=== PATIENT | female | born 1970 | race African-American/Black ===

== ENCOUNTER 2019-04-30 19:21 | Emergency (ER) | payer MEDICARE, MEDICAID ==
[~2019-04-30] VITALS: Ht 167.6 cm; Wt 149.7 kg
--- OUTSIDE RECORDS SUMMARY | 2019-04-30 19:28 | XMS REPORT ---
Author Author [facility]EEPTHI SORIA [facility] Address [address] [place] [address] Care Team Providers Care Mail Handlers Supervisor Name Role Phone DEEPTHI SORIA Unavailable PROBLEMS Unknown Problems ALLERGIES Substance Reaction Event Type Date Status DILATIN-CAUSES RASH Unknown Non Drug Allergy Aug, Active ENCOUNTERS Encounter Location Date Diagnosis [facility] [address] [id number] [address] Feb, [facility] [address] [id number], [place] [id number] Feb, [facility] [address] [id number] [place] [phone] Nov, Encounter for dental exam and cleaning w/o abnormal findings Z01.20 [facility] [address] [id number] [place] [phone] Aug, Encounter for dental exam and cleaning w/o abnormal findings Z01.20 [facility] [place] [address] [id number] [place] [phone] Aug, Dental examination Z01.20 [facility] [address] [id number] [place] [phone] May, Encounter for dental examination and cleaning with abnormal findings Z01.21 [facility] [address] [id number] [place] [phone] Feb, Encounter for dental examination and cleaning without abnormal findings Z01.20 [facility] [address] [id number] [place] [phone] Sep, Dental examination Z01.20 [facility] [address] [id number], [place] [phone] Sep, Dental examination Z01.20 [facility] [address] [id number] [place] [phone] May, Encounter for dental examination and cleaning without abnormal findings Z01.20 [facility] [address] [id number], [place] [id number] Apr, Encounter for dental examination Z01.20 [facility] [address] [id number], [place] [id number] January, Dental examination Z01.20 [facility] [address] [id number] [place] [phone] January, Encounter for dental examination and cleaning without abnormal findings Z01.20 [facility] [address] [id number] [place] [id number] Apr, Dental examination V72.2 [facility] [address] [id number] [place] [id number] Mar, Dental examination V72.2 [facility] [address] [id number] [place] [phone] Feb, Dental examination V72.2 IMMUNIZATIONS No Known Immunizations SOCIAL HISTORY Never Assessed REASON FOR VISIT PLAN OF CARE Activity Details Follow Up ZEV Reason:Restorative and extraction VITAL SIGNS MEDICATIONS Medication Instructions Dosage Frequency Start Date End Date Duration Status Atorvastatin-Coenzyme Q10 Active Potassium Bicarb & Chloride Active Premarin Active Metformin HCl Active Lisinopril Active Carbamazepine Active RESULTS No Results PROCEDURES Procedure Date Ordered Result Body Site PERIODIC ORAL EXAMINATION Sep 13, 2017 BITEWINGS - THREE FILMS Sep 13, 2017 INSTRUCTIONS MEDICATIONS ADMINISTERED No Known Medications MEDICAL (GENERAL) HISTORY Type Description Date Medical History HBP Surgical History HYSTERECTOMY 20 YEARS AGO
--- OUTSIDE RECORDS SUMMARY | 2019-04-30 19:28 | XMS REPORT ---
Author Author DEEPTHI SORIA Organization [facility] [address] Address [address] [place] [address] Care Team Providers Care Passenger Car Upholsterer Apprentice Name Role Phone DEEPTHI SORIA Unavailable PROBLEMS Unknown Problems ALLERGIES Substance Reaction Event Type Date Status DILATIN-CAUSES RASH Unknown Non Drug Allergy Feb, Active ENCOUNTERS Encounter Location Date Diagnosis [facility] [address] [place] [address] Feb, [facility] [address] [place] [address] Feb, Dental examination Z01.20 [facility] [address] [id number] [place] [phone] Nov, Encounter for dental exam and cleaning w/o abnormal findings Z01.20 [facility] [address] [id number] [place] [phone] Aug, Encounter for dental exam and cleaning w/o abnormal findings Z01.20 [facility] [address] [place] [address] Aug, Dental examination Z01.20 [facility] [address] [id number], [place] [phone] May, Encounter for dental examination and cleaning with abnormal findings Z01.21 [facility] [address] [id number], [place] [phone] Feb, Encounter for dental examination and cleaning without abnormal findings Z01.20 [facility] [address] [id number], [place] [phone] Sep, Dental examination Z01.20 [facility] [address] [id number], [place] [phone] Sep, Dental examination Z01.20 [facility] [address] [id number], [place] [phone] May, Encounter for dental examination and cleaning without abnormal findings Z01.20 [facility] [address] [address] [id number] [place] [phone] Apr, Encounter for dental examination Z01.20 [facility] [address] [id number], [place] [phone] January, Dental examination Z01.20 [facility] [address] [id number], [place] [phone] January, Encounter for dental examination and cleaning without abnormal findings Z01.20 [facility] [address] [id number], [place] [phone] Apr, Dental examination V72.2 [facility] [address] [id number], [place] [phone] Mar, Dental examination V72.2 [facility] [address] [id number], [place] [phone] Feb, Dental examination V72.2 IMMUNIZATIONS No Known Immunizations SOCIAL HISTORY Never Assessed REASON FOR VISIT Adult outreach ORIANA Denny PLAN OF CARE Activity Details Follow Up 3 Months Reason:on site recall VITAL SIGNS MEDICATIONS Medication Instructions Dosage Frequency Start Date End Date Duration Status Premarin Active Atorvastatin-Coenzyme Q10 Active Carbamazepine Active Lisinopril Active Metformin HCl Active Potassium Bicarb & Chloride Active RESULTS No Results PROCEDURES Procedure Date Ordered Result Body Site PERIODIC ORAL EXAMINATION March 21, 2018 PROPHYLAXIS - ADULT March 21, 2018 BITEWINGS - THREE FILMS March 21, 2018 INSTRUCTIONS MEDICATIONS ADMINISTERED No Known Medications MEDICAL (GENERAL) HISTORY Type Description Date Medical History HBP Surgical History HYSTERECTOMY 20 YEARS AGO
--- OUTSIDE RECORDS SUMMARY | 2019-04-30 19:28 | XMS REPORT ---
Author Author TASHA AARON Organization [facility] Address [address] [place] [address] Phone Unavailable Care Team Providers Care Choir Singer Name Role Phone TASHA AARON Unavailable Unavailable PROBLEMS Unknown Problems ALLERGIES Substance Reaction Event Type Date Status DILATIN-CAUSES RASH Unknown Non Drug Allergy Nov, Active ENCOUNTERS Encounter Location Date Diagnosis [facility] [place] [address] [place] [address] Feb, [facility] [place] [address] [place] [address] Feb, Dental examination Z01.20 [facility] [address] [id number] [place] [phone] Nov, Encounter for dental exam and cleaning w/o abnormal findings Z01.20 [facility] [address] [id number] [place] [phone] Aug, Encounter for dental exam and cleaning w/o abnormal findings Z01.20 [facility] [place] [address] [place] [address] Aug, Dental examination Z01.20 [facility] [address] [id number] [place] [phone] May, Encounter for dental examination and cleaning with abnormal findings Z01.21 [facility] [address] [id number] [place]RAWF[place] [phone] Feb, Encounter for dental examination and cleaning without abnormal findings Z01.20 [facility] [address] [id number] [place] [phone] Sep, Dental examination Z01.20 [facility] [address] [id number], [place] [phone] Sep, Dental examination Z01.20 [facility] [address] [id number] [place]RA[place] [phone] May, Encounter for dental examination and cleaning without abnormal findings Z01.20 [facility] [address] [id number] [place] [phone] Apr, Encounter for dental examination Z01.20 [facility] [address] [facility] [address] [id number] [place] [phone] January, Dental examination Z01.20 [facility] [address] [id number] [place]RAWF[place] [phone] January, Encounter for dental examination and cleaning without abnormal findings Z01.20 [facility] [address] [id number] [place]RAWF[place] [phone] Apr, Dental examination V72.2 [facility] [address] [id number] [place] [phone] Mar, Dental examination V72.2 [facility] [address] [id number] [place] [phone] Feb, Dental examination V72.2 IMMUNIZATIONS No Known Immunizations SOCIAL HISTORY Never Assessed REASON FOR VISIT [facility]ACH [facility] PLAN OF CARE Activity Details Follow Up 3 Months Reason:ON SITE RECALL VITAL SIGNS MEDICATIONS Medication Instructions Dosage Frequency Start Date End Date Duration Status Premarin Active Atorvastatin-Coenzyme Q10 Active Carbamazepine Active Metformin HCl Active Lisinopril Active Potassium Bicarb & Chloride Active RESULTS No Results PROCEDURES Procedure Date Ordered Result Body Site PROPHYLAXIS - ADULT December 13, 2017 TOPICAL FLUORIDE VARNISH December 13, 2017 INSTRUCTIONS MEDICATIONS ADMINISTERED No Known Medications MEDICAL (GENERAL) HISTORY Type Description Date Medical History HBP Surgical History HYSTERECTOMY 20 YEARS AGO
--- OUTSIDE RECORDS SUMMARY | 2019-04-30 19:28 | XMS REPORT ---
Author Author [facility]OLMAN [facility] [place] Address [address] [place] [address] Care Team Providers Care Mining Engineer Name Role Phone TORY HOLMAN Unavailable PROBLEMS Type Condition ICD9-CM Code [id number] Code Onset Dates Condition Status SNOMED Code Assessment Encounter for dental examination Z01.20 Apr, Active [id number] ALLERGIES Unknown Allergies SOCIAL HISTORY No smoking Hx information available PLAN OF CARE VITAL SIGNS MEDICATIONS Unknown Medications RESULTS No Results PROCEDURES Procedure Date Ordered Related Diagnosis Body Site Dental no charge May 17, 2016 IMMUNIZATIONS No Known Immunizations
--- OUTSIDE RECORDS SUMMARY | 2019-04-30 19:28 | XMS REPORT ---
Author Author RANDY CRAVEN Organization [employer] Address Unknown Phone Unavailable Care Team Providers Care Auto Dealer Name Role Phone RANDY CRAVEN CP Unavailable Allergies No Known Allergies Problems Problem Type Condition ICD-9 Code Onset Dates Condition Status Assessment Dental examination V72.2 Active Medications No Known Medications Procedures Procedure Coding System Code Date Dental no charge CPT-4 D0099 May 20, 2015 Results No Known Results Summary Purpose [employer] Submission
--- OUTSIDE RECORDS SUMMARY | 2019-04-30 19:28 | XMS REPORT ---
Author Author DEEPTHI SORIA Organization [facility] [address] Address [address] [place] [address] Care Team Providers Care Blind Hanger Name Role Phone DEEPTHI SORIA Unavailable PROBLEMS Unknown Problems ALLERGIES No Information ENCOUNTERS Encounter Location Date Diagnosis [facility] [address] [place] [address] Feb, [facility] [address] [place] [address] Feb, Dental examination Z01.20 [facility] [address] [id number] [place] [id number] Nov, Encounter for dental exam and cleaning w/o abnormal findings Z01.20 [facility] [address] [id number] [place] [phone] Aug, Encounter for dental exam and cleaning w/o abnormal findings Z01.20 [facility] [address] [place] [address] Aug, Dental examination Z01.20 [facility] [address] [id number] [place] [phone] May, Encounter for dental examination and cleaning with abnormal findings Z01.21 [facility] [address] [id number] [place]AMES[place] [phone] Feb, Encounter for dental examination and cleaning without abnormal findings Z01.20 [facility] [address] [id number] [place]AMES[place] [phone] Sep, Dental examination Z01.20 [facility] [address] [id number], [place] [phone] Sep, Dental examination Z01.20 [facility] [address] [id number] [place]AMES[place] [phone] May, Encounter for dental examination and cleaning without abnormal findings Z01.20 [facility] [address] [id number] [place] [phone] Apr, Encounter for dental examination Z01.20 [facility] [address] [id number] [place] [phone] January, Dental examination Z01.20 [facility] [address] [id number] [place] [phone] January, Encounter for dental examination and cleaning without abnormal findings Z01.20 [facility] [address] [id number] [place]AMES[place] [phone] Apr, Dental examination V72.2 [facility] [address] [id number] [place] [phone] Mar, Dental examination V72.2 [facility] [address] [id number] [place] [phone] Feb, Dental examination V72.2 IMMUNIZATIONS No Known Immunizations SOCIAL HISTORY Never Assessed REASON FOR VISIT referral PLAN OF CARE VITAL SIGNS MEDICATIONS Unknown Medications RESULTS No Results PROCEDURES No Known procedures INSTRUCTIONS MEDICATIONS ADMINISTERED No Known Medications MEDICAL (GENERAL) HISTORY Type Description Date Medical History HBP Surgical History HYSTERECTOMY 20 YEARS AGO
--- OUTSIDE RECORDS SUMMARY | 2019-04-30 19:28 | XMS REPORT ---
Author Author TASHA AARON [facility] Address [address] [place] [address] Phone Unavailable Care Team Providers Care Slat Basket Top Maker Name Role Phone TASHA AARON Unavailable Unavailable PROBLEMS Unknown Problems ALLERGIES Substance Reaction Event Type Date Status N.K.D.A. Unknown Non Drug Allergy Sep, Unknown SOCIAL HISTORY No smoking Hx information available PLAN OF CARE Activity Details Follow Up 3 Months Reason:ON SITE RESTORATIVE VITAL SIGNS MEDICATIONS Unknown Medications RESULTS No Results PROCEDURES Procedure Date Ordered Related Diagnosis Body Site PROPHYLAXIS - ADULT Sep 30, 2016 TOPICAL FLUORIDE VARNISH Sep 30, 2016 IMMUNIZATIONS No Known Immunizations
--- OUTSIDE RECORDS SUMMARY | 2019-04-30 19:29 | XMS REPORT | Continuity of Care Document ---
Author Organization Unknown Address Unknown Phone Unavailable Allergies There is no data. Medications There is no data. Problems There is no data. Procedures There is no data. Results Test Result Range CBC - 02/04/19 08:45 WHITE BLOOD CELL COUNT 8.0 Thousand/uL 3.8-10.8 RED BLOOD CELL COUNT 4.57 Million/uL 3.80-5.10 HEMOGLOBIN 12.7 g/dL 11.7-15.5 HEMATOCRIT 38.8 % 35.0-45.0 MCV 84.9 fL 80.0-100.0 MCH 27.8 pg 27.0-33.0 MCHC 32.7 g/dL 32.0-36.0 RDW 12.7 % 11.0-15.0 PLATELET COUNT 263 Thousand/uL 140-400 MPV 10.4 fL 7.5-12.5 ABSOLUTE NEUTROPHILS 6064 cells/uL 7553-9357 ABSOLUTE LYMPHOCYTES 1464 cells/uL 850-3900 ABSOLUTE MONOCYTES 360 cells/uL 200-950 ABSOLUTE EOSINOPHILS 80 cells/uL 15-500 ABSOLUTE BASOPHILS 32 cells/uL 0-200 NEUTROPHILS 75.8 % NRG LYMPHOCYTES 18.3 % NRG MONOCYTES 4.5 % NRG EOSINOPHILS 1.0 % NRG BASOPHILS 0.4 % NRG A1C - 02/04/19 08:45 HEMOGLOBIN A1c 9.3 % of total Hgb <5.7 Encounters ACCT No. Visit Date/Time Discharge Status Pt. Type Provider Facility Loc./Unit Complaint [id number] 02/06/2019 14:00:00 02/06/2019 23:59:59 [facility] Outpatient TAD HENRIQUEZ [facility] [id number] 02/04/2019 08:30:00 Document Registration
--- OUTSIDE RECORDS SUMMARY | 2019-04-30 19:29 | XMS REPORT ---
Author Author TASHA AARON Organization [facility] Address [address] [place] [address] Phone Unavailable Care Team Providers Care Service Order Clerk Name Role Phone TASHA AARON Unavailable Unavailable PROBLEMS Unknown Problems ALLERGIES Substance Reaction Event Type Date Status DILATIN-CAUSES RASH Unknown Non Drug Allergy Feb, Active ENCOUNTERS Encounter Location Date Diagnosis [facility] [address] [id number], [place] [phone] Nov, Encounter for dental exam and cleaning w/o abnormal findings Z01.20 [facility] [address] [id number], [place] [phone] Aug, Encounter for dental exam and cleaning w/o abnormal findings Z01.20 [facility] [place] [address] [id number] [place] [phone] Aug, Dental examination Z01.20 [facility] [address] [id number], [place] [phone] May, Encounter for dental examination and cleaning with abnormal findings Z01.21 [facility] [address] [id number], [place] [phone] Feb, Encounter for dental examination and cleaning without abnormal findings Z01.20 [facility] [address] [id number], [place] [phone] Sep, Dental examination Z01.20 [facility] [address] [id number] [place] [phone] Sep, Dental examination Z01.20 [facility] [address] [id number], [place] [phone] May, Encounter for dental examination and cleaning without abnormal findings Z01.20 [facility] [address] [id number] BEACH[place] [phone] Apr, Encounter for dental examination Z01.20 [facility] [address] [id number] [place] [phone] January, Dental examination Z01.20 [facility] [address] [id number], [place] [phone] January, Encounter for dental examination and cleaning without abnormal findings Z01.20 [facility] [address] [id number], [place] [phone] Apr, Dental examination V72.2 [facility] [address] [id number], [place] [id number] Mar, Dental examination V72.2 [facility] [address] [facility] [id number], [place] [phone] Feb, Dental examination V72.2 IMMUNIZATIONS No Known Immunizations SOCIAL HISTORY Never Assessed REASON FOR VISIT ADULT OUTREACH [facility] PLAN OF CARE Activity Details Follow Up 3 Months Reason:ON SITE RECALL VITAL SIGNS MEDICATIONS Medication Instructions Dosage Frequency Start Date End Date Duration Status Potassium Bicarb & Chloride Active Carbamazepine Active Premarin Active Atorvastatin-Coenzyme Q10 Active Metformin HCl Active Lisinopril Active RESULTS No Results PROCEDURES Procedure Date Ordered Result Body Site PROPHYLAXIS - ADULT February 23, 2017 INSTRUCTIONS MEDICATIONS ADMINISTERED No Known Medications MEDICAL (GENERAL) HISTORY Type Description Date Medical History HBP Surgical History HYSTERECTOMY 20 YEARS AGO
--- OUTSIDE RECORDS SUMMARY | 2019-04-30 19:29 | XMS REPORT ---
Author Author TASHA AARON [facility] Address [address] [place] [address] Phone Unavailable Care Team Providers Care Airline Reservationist Name Role Phone TASHA AARON Unavailable Unavailable PROBLEMS Unknown Problems ALLERGIES Substance Reaction Event Type Date Status DILATIN-CAUSES RASH Unknown Non Drug Allergy Aug, Active ENCOUNTERS Encounter Location Date Diagnosis [facility] [address] [id number] [address] Feb, [facility] [address] [id number], [place] [phone] Feb, [facility] [address] [id number] [place]AMES [place] [phone] Nov, Encounter for dental exam and cleaning w/o abnormal findings Z01.20 [facility] [address] [id number] [place]AMES [place] [phone] Aug, Encounter for dental exam and cleaning w/o abnormal findings Z01.20 [facility] [place] [address] [id number] [place] [phone] Aug, Dental examination Z01.20 [facility] [address] [id number] [place]AMES [place] [phone] May, Encounter for dental examination and cleaning with abnormal findings Z01.21 [facility] [address] [id number] [place]AMES [place] [phone] Feb, Encounter for dental examination and cleaning without abnormal findings Z01.20 [facility] [address] [id number] [place]AMES [place], [place] [phone] Sep, Dental examination Z01.20 [facility] [address] [id number], [place] [phone] Sep, Dental examination Z01.20 [facility] [address] [id number] JAMES [place] [phone] May, Encounter for dental examination and cleaning without abnormal findings Z01.20 [facility] [address] [id number] [place] [phone] Apr, Encounter for dental examination Z01.20 [facility] [address] [id number], [place] [phone] January, Dental examination Z01.20 [facility] [address] [id number] [place]AMES [place] [phone] January, Encounter for dental examination and cleaning without abnormal findings Z01.20 [facility] [address] [id number] JAMES [place], [place] [phone] Apr, Dental examination V72.2 [facility] [address] [id number] [place]AMES [place] [phone] Mar, Dental examination V72.2 [facility] [address] [id number] [place]AMES [place] [phone] Feb, Dental examination V72.2 IMMUNIZATIONS No Known Immunizations SOCIAL HISTORY Never Assessed REASON FOR VISIT ADULT OUTREACH [facility] PLAN OF CARE Activity Details Follow Up SITE STAFF WILL CALL Reason:[place] [facility] RESTORATIVE VITAL SIGNS MEDICATIONS Medication Instructions Dosage Frequency Start Date End Date Duration Status Premarin Active Lisinopril Active Metformin HCl Active Atorvastatin-Coenzyme Q10 Active Potassium Bicarb & Chloride Active Carbamazepine Active RESULTS No Results PROCEDURES Procedure Date Ordered Result Body Site PROPHYLAXIS - ADULT Sep 13, 2017 Billing Notes on claim Sep 13, 2017 Dental Outreach adjust balance Sep 13, 2017 INSTRUCTIONS MEDICATIONS ADMINISTERED No Known Medications MEDICAL (GENERAL) HISTORY Type Description Date Medical History HBP Surgical History HYSTERECTOMY 20 YEARS AGO
--- OUTSIDE RECORDS SUMMARY | 2019-04-30 19:29 | XMS REPORT ---
Author Author TASHA AARON [facility] Address [address] [place] [address] Phone Unavailable Care Team Providers Care Billboard Erector Name Role Phone TASHA AARON Unavailable Unavailable PROBLEMS Type Condition ICD9-CM Code XRQ21-OD Code Onset Dates Condition Status SNOMED Code Assessment Encounter for dental examination and cleaning without abnormal findings Z01.20 May, Active [id number] ALLERGIES Substance Reaction Event Type Date Status N.K.D.A. Unknown Non Drug Allergy May, Unknown SOCIAL HISTORY No smoking Hx information available PLAN OF CARE VITAL SIGNS MEDICATIONS Unknown Medications RESULTS No Results PROCEDURES Procedure Date Ordered Related Diagnosis Body Site PROPHYLAXIS - ADULT Jun 07, 2016 TOPICAL FLUORIDE VARNISH Jun 07, 2016 IMMUNIZATIONS No Known Immunizations
--- OUTSIDE RECORDS SUMMARY | 2019-04-30 19:29 | XMS REPORT ---
Author Author TORY HOLMAN [facility] Address [address] [place] [address] Care Team Providers Care Keno Writer / Runner Name Role Phone TORY HOLMAN Unavailable PROBLEMS Unknown Problems ALLERGIES Unknown Allergies SOCIAL HISTORY No smoking Hx information available PLAN OF CARE Activity Details Follow Up prn Reason:restorative VITAL SIGNS MEDICATIONS Unknown Medications RESULTS No Results PROCEDURES Procedure Date Ordered Related Diagnosis Body Site PERIODIC ORAL EXAMINATION Sep 29, 2016 BITEWINGS - FOUR FILMS Sep 29, 2016 IMMUNIZATIONS No Known Immunizations
--- OUTSIDE RECORDS SUMMARY | 2019-04-30 19:29 | XMS REPORT ---
Author Author TASHA AARON Organization [facility] Address [address] [place] [address] Phone Unavailable Care Team Providers Care Supervisor Travel Information Center Name Role Phone TASHA AARON Unavailable Unavailable PROBLEMS Unknown Problems ALLERGIES Substance Reaction Event Type Date Status DILATIN-CAUSES RASH Unknown Non Drug Allergy May, Active ENCOUNTERS Encounter Location Date Diagnosis [facility] [address] [id number] [id number] Nov, Encounter for dental exam and cleaning w/o abnormal findings Z01.20 [facility] [address] [id number] [id number] Aug, Encounter for dental exam and cleaning w/o abnormal findings Z01.20 [facility] [place] [address] [id number] [place] [id number] Aug, Dental examination Z01.20 [facility] [address] [id number] [id number] May, Encounter for dental examination and cleaning with abnormal findings Z01.21 [facility] [address] [id number][place] [id number] Feb, Encounter for dental examination and cleaning without abnormal findings Z01.20 [facility] [address] [id number] [id number] Sep, Dental examination Z01.20 [facility] [place] [address] [id number] [id number] Sep, Dental examination Z01.20 [facility] [address] [id number][place] [id number] May, Encounter for dental examination and cleaning without abnormal findings Z01.20 [facility] [place] [address] [id number] [phone] Apr, Encounter for dental examination Z01.20 [facility] [place] [address] [id number] [place] [phone] January, Dental examination Z01.20 [facility] [address] [id number] [phone] January, Encounter for dental examination and cleaning without abnormal findings Z01.20 [facility] [address] [id number] [id number] Apr, Dental examination V72.2 [facility] [address] [id number][place] [id number] Mar, Dental examination V72.2 [facility] [address] [facility] [id number] [id number] Feb, Dental examination V72.2 IMMUNIZATIONS No Known Immunizations SOCIAL HISTORY Never Assessed REASON FOR VISIT ADULT OUTREACH [facility] PLAN OF CARE Activity Details Follow Up 3 Months Reason:ON SITE RECALL VITAL SIGNS MEDICATIONS Medication Instructions Dosage Frequency Start Date End Date Duration Status Lisinopril Active Premarin Active Potassium Bicarb & Chloride Active Atorvastatin-Coenzyme Q10 Active Carbamazepine Active Metformin HCl Active RESULTS No Results PROCEDURES Procedure Date Ordered Result Body Site PROPHYLAXIS - ADULT May 26, 2017 INSTRUCTIONS MEDICATIONS ADMINISTERED No Known Medications MEDICAL (GENERAL) HISTORY Type Description Date Medical History HBP Surgical History HYSTERECTOMY 20 YEARS AGO
--- OUTSIDE RECORDS SUMMARY | 2019-04-30 19:29 | XMS REPORT ---
Author Author GAVIOTA ALBA Organization [employer] Address Unknown Phone Unavailable Care Team Providers Care Construction Sales Representative Name Role Phone GAVIOTA ALBA CP Unavailable Allergies No Known Allergies Problems Problem Type Condition ICD-9 Code Onset Dates Condition Status Assessment Dental examination V72.2 Active Medications No Known Medications Procedures Procedure Coding System Code Date INTRAORL-PERIAPICAL 1 FILM 00159 CPT-4 D0220 April 17, 2015 INTRAORL-PERIAPICAL EA ADD FILM CPT-4 D0230 April 17, 2015 COMP ORAL EVALUATION - NEW/EST PT CPT-4 D0150 April 17, 2015 Full mouth debridement CPT-4 D4355 April 17, 2015 TOPICAL FLUORIDE VARNISH CPT-4 D1206 April 17, 2015 INTRAORL-PERIAPICAL EA ADD FILM CPT-4 D0230 April 17, 2015 INTRAORL-PERIAPICAL EA ADD FILM CPT-4 D0230 April 17, 2015 BITEWINGS - FOUR FILMS CPT-4 D0274 April 17, 2015 INTRAORL-PERIAPICAL EA ADD FILM CPT-4 D0230 April 17, 2015 Results No Known Results Summary Purpose [employer] Submission
[2019-04-30] MEDS ORDERED: KETOROLAC 60 MG/2 ML VIAL IM STA (20:14)
[2019-04-30] MEDS ORDERED: cefTRIAXone 1,000 MG/2.86 ml vial (IM ONLY) IM STA (20:14)
[2019-04-30] MEDS ORDERED: LIDOCAINE 1% INJ 20 ML 20 ML VIAL INJ ONE (20:15)
--- NOTE | 2019-04-30 20:24 | ED EENT ---
History of Present Illness General Chief Complaint: Facial Problems Stated Complaint: FACIAL SWELLING Nursing Triage Note: mother states face started swelling yesterday, states she thinks it is a back tooth but unsure of which one, pt is a [facility] pt, pt to see dentist in am Source: patient, family History of Present Illness Date Seen by Provider: Apr 30, 2019 Time Seen by Provider: 20:01 Initial Comments 48-year-old female presenting with complaints of right-sided jaw and face pain. This is been worsening in the last 2-3 days. Today she has had increasing swelling to the right side of her face and jaw. Mom hasn't made a dental appointment with the [facility] dentist for tomorrow but the degree of swelling to her face has increased throughout the afternoon and evening. She was concerned that she might be developing an abscess. She has a history of having an abscess that formed sinusitis and then developed into meningitis for so she was concerned about this. She brought her in for more emergent evaluation been waiting for the dentist. The patient has no fever currently. She does have developmental delay so it is difficult to fully assess her degree of pain. She has been complaining of some pain to her face and jaw at times. She was not wanting to eat due to the pain in her lower jaw on the right side. She complains of pain goes into her ear on the right side. There has been no injury to her face or mouth. Allergies and Home Medications Allergies Coded Allergies: phenytoin (Verified Allergy, Intermediate, Rash, 04/30/19) Home Medications Amoxicillin/Potassium Clav 1 Each Tablet, 1 EACH PO BID Prescribed by: LUZ MARIA SUH on 04/30/19 7845 Patient Home Medication List Home Medication List Reviewed: Yes Review of Systems Review of Systems Constitutional: No chills, No fever Eyes: No Symptoms Reported Ears: Pain (right ear); Denies Bloody Discharge, Denies Clear Discharge, Denies Purulent Discharge Nose: no symptoms reported Mouth: denies loose teeth; pain (right lower jaw), swelling (right side of mouth and face); denies bloody discharge, denies clear discharge, denies pur ulent discharge, denies serosanguinous discharge Throat: no symptoms reported Respiratory: no symptoms reported Cardiovascular: no symptoms reported Gastrointestinal: no symptoms reported Musculoskeletal: no symptoms reported Skin: no symptoms reported Neurological: No Symptoms Reported Past Otlqnde-Rzgyst-Rxvfmk Hx Past Med/Social Hx: Reviewed Nursing Past Med/Soc Hx Patient Social History Alcohol Use: Denies Use Recreational Drug Use: No Smoking Status: Never a Smoker 2nd Hand Smoke Exposure: No Recent Foreign Travel: No Contact w/Someone Who Travel: No Recent Infectious Disease Expo: No Recent Hopitalizations: No Physical Abuse: No Sexual Abuse: No Mistreated: No Fear: No Seasonal Allergies Seasonal Allergies: No Past Medical History Surgeries: Yes Hysterectomy Respiratory: No Cardiac: Yes High Cholesterol, Hypertension Neurological: Yes Developmental Disorder, Seizure Disorder Genitourinary: No Gastrointestinal: No Musculoskeletal: No Endocrine: Yes Diabetes, Non-Insulin dep HEENT: No Cancer: No Psychosocial: No Integumentary: No Blood Disorders: No Physical Exam Vital Signs Vital Signs - First Documented 04/30/19 04/30/19 19:57 21:41 Temp 99.0 Pulse 112 Resp 18 B/P (MAP) 182/86 (118) Pulse Ox 99 O2 Delivery Room Air Height, Weight, BMI Height: 5'6.00" Weight: 330lbs. oz. 149.679504vg; BMI Method:Stated General Appearance: WD/WN, no apparent distress Eyes: bilateral eye PERRL, bilateral eye EOMI Ears: bilateral ear auricle normal, bilateral ear canal normal, bilateral ear TM normal Nose: normal inspection Mouth/Throat: pharynx normal; No dental tenderness, No foreign body; maxillary swelling (right side), other (tenderness to right maxillary sinus area with swelling present) Neck: non-tender, full range of motion, supple Cardiovascular: regular rate, rhythm Respiratory: chest non-tender, lungs clear, normal breath sounds Neurologic/Psychiatric: alert, normal mood/affect Skin: normal color, warm/dry Progress/Results/Core Measures Results/Orders My Orders Orders - LUZ MARIA SUH MD Ceftriaxone For Im Use (Rocephin For Im (04/30/19 20:14) Lidocaine 1% Inj 20 Ml (Xylocaine 1% Inj (04/30/19 20:15) Ketorolac Injection (Toradol Injection) (04/30/19 20:14) Ct Sinus Complete Wo (04/30/19 20:14) Medications Given in ED Current Medications Medications Dose Ordered Sig/David Route Start Time Stop Time Status Last Admin Dose Admin Lidocaine HCl 2.1 ml ONCE ONCE INJ 04/30/19 20:15 04/30/19 20:17 DC 04/30/19 20:25 2.1 ML Vital Signs/I&O 04/30/19 04/30/19 19:57 21:41 Temp 99.0 99.1 Pulse 112 95 Resp 18 18 B/P (MAP) 182/86 (118) 144/81 (102) Pulse Ox 99 95 O2 Delivery Room Air Blood Pressure Mean: 118 Progress Progress Note #1: Progress Note With the patient having tenderness and swelling over the right maxillary sinus and she will obtain CT scan of her sinuses. Mom states that she previously has had meningitis due to infected sinus and teeth. We will also treat her with a Rocephin 1 g IM injection to help start covering her with antibiotics for possible dental infection. With her possible pain as well as pain with palpation Will give a dose of Toradol IM to help for this. She does have a appointment to see the dentist tomorrow through [facility]. We'll plan on prescribing Augmentin for antibiotics as well provided there was nothing that needs more emergent treatment off of the CT scan such as osteomyelitis or an abscess that would need admission or drainage. Progress Note #2: Progress Note CT scan of the sinuses shows some indeterminate swelling in inflammation of the tissues overlying the maxillary sinus. There is lucency of the apex area of some teeth. There are no signs of maxillary sinusitis. There is no signs of osteomyelitis. We'll proceed with antibiotics to treat for dental abscess. Continue with the dental appointment tomorrow. Encouraged to sleep with head of bed elevated to help prevent further swelling overnight. May use ice for pain and swelling as well. Follow-up through the clinic for continued concerns. Diagnostic Imaging Diagonstic Imaging: CT Plain Films/CT/US/NM/MRI: facial bones Comments NAME: JAISON CHEEK Cuco [facility] REC#: [id number] PT STATUS: REG ER : 1970 PHYSICIAN: LUZ MARIA SUH MD ADMIT DATE: 04/30/19/ER FS Draft Date of Exam:04/30/19 CT SINUS COMPLETE WO PROCEDURE: CT sinuses without contrast TECHNIQUE: Multiple contiguous axial images were obtained through the sinuses without the use of intravenous contrast. Coronal and sagittal reformations were then performed. Auto Exposure Controls were utilized during the CT exam to meet ALARA standards for radiation dose reduction. DATE: April 30, 2019. INDICATION: 48-year-old female, right maxillary sinus swelling and pain. History of dental and sinus infections. COMPARISON: None. FINDINGS: There are motion limitations of the exam. There is mucosal thickening of the bilateral maxillary sinuses. There are polypoid lesions in the left maxillary sinus that likely relate to mucus retention cyst. The additional visualized portions of the paranasal sinuses are well aerated. There is no air-fluid level. There are no areas of mildly internal lucency or frothy secretions to specifically suggest acute sinusitis. The visualized portions of the mastoid air cells and middle ears are well aerated bilaterally. There is opacification within the bilateral external auditory canals. The temporomandibular joints are normally aligned bilaterally. The mandible is intact. Small portions of the inferior mandible are not in the included [id number] of imaging. There is no identified acute maxillofacial bone fracture. There is no cortical or aggressive bone destruction to suggest osteomyelitis. There are degenerative changes of the cervical spine. The sensitivity for detection of abscess is reduced given lack of intravenous contrast. There is nonspecific inflammatory stranding in the region of the right and left cheeks and superficial to the maxilla bilaterally. There is a periapical lucency and cortical defect of a left maxillary tooth which is fourth from midline on the left. IMPRESSION: 1. Nonspecific inflammatory stranding in the region of the right and left cheeks and also at the level of the anterior aspect of the maxilla superficially. 2. There is a periapical lucency and cortical defect associated with the left maxillary tooth the fourth from the midline. 3. No CT evidence of osteomyelitis. 4. No CT evidence of acute sinusitis. Dictated on workstation # [id number] Dict: 04/30/192051 Trans: 04/30/192102 [facility] [id number] Interpreted by: ROLANDA CONTRERAS MD Electronically signed by: Departure Impression Primary Impression: Dental abscess Additional Impression: Swelling of right side of face Disposition: 01 HOME, SELF-CARE Condition: Stable Departure-Patient Inst. Decision time for Depature: 21:31 Referrals: TAD HENRIQUEZ MD (PCP/Family) Primary Care Physician Patient Instructions: Tooth Abscess (DC), Dental Pain (DC) Add. Discharge Instructions: Try to keep your head elevated, especially when sleeping in the next few days to help limit the swelling. Take the full course of antibiotics. Follow up with dentist for the abscess and dental pain. check with clinic for continued concerns All discharge instructions reviewed with patient and/or family. Voiced understanding. Scripts Amoxicillin/Potassium Clav (Amox Tr-K Clv 875-125 mg Tab) 1 Each Tablet 1 EACH PO BID for dental abscess for 10 Days, #20 TAB 0 Refills Prov: LUZ MARIA SUH MD 04/30/19 LUZ MARIA SUH MD Apr 30, 2019 20:23
--- NOTE | 2019-04-30 21:04 | Diagnostic Imaging Report ---
PROCEDURE: CT sinuses without contrast TECHNIQUE: Multiple contiguous axial images were obtained through the sinuses without the use of intravenous contrast. Coronal and sagittal reformations were then performed. Auto Exposure Controls were utilized during the CT exam to meet ALARA standards for radiation dose reduction. DATE: April 30, 2019. INDICATION: 48-year-old female, right maxillary sinus swelling and pain. History of dental and sinus infections. COMPARISON: None. FINDINGS: There are motion limitations of the exam. There is mucosal thickening of the bilateral maxillary sinuses. There are polypoid lesions in the left maxillary sinus that likely relate to mucus retention cyst. The additional visualized portions of the paranasal sinuses are well aerated. There is no air-fluid level. There are no areas of mildly internal lucency or frothy secretions to specifically suggest acute sinusitis. The visualized portions of the mastoid air cells and middle ears are well aerated bilaterally. There is opacification within the bilateral external auditory canals. The temporomandibular joints are normally aligned bilaterally. The mandible is intact. Small portions of the inferior mandible are not in the included [id number] of imaging. There is no identified acute maxillofacial bone fracture. There is no cortical or aggressive bone destruction to suggest osteomyelitis. There are degenerative changes of the cervical spine. The sensitivity for detection of abscess is reduced given lack of intravenous contrast. There is nonspecific inflammatory stranding in the region of the right and left cheeks and superficial to the maxilla bilaterally. There is a periapical lucency and cortical defect of a left maxillary tooth which is fourth from midline on the left. IMPRESSION: 1. Nonspecific inflammatory stranding in the region of the right and left cheeks and also at the level of the anterior aspect of the maxilla superficially. 2. There is a periapical lucency and cortical defect associated with the left maxillary tooth the fourth from the midline. 3. No CT evidence of osteomyelitis. 4. No CT evidence of acute sinusitis. Dictated by: Dictated on workstation # [id number]
[2019-04-30] MEDS ORDERED: AMOX1TAB12 PO (21:33)
[2019-04-30 21:41] VITALS: BP 144/81
== END 2019-04-30 21:40 | disposition home or self-care (01) ==
LOC: ER FS 19:24
DX: K04.7 Periapical abscess without sinus (principal); R22.0 Localized swelling, mass and lump, head; I10 Essential (primary) hypertension; E78.00 Pure hypercholesterolemia, unspecified; G40.909 Epilepsy, unspecified, not intractable, without status epilepticus; F89 Unspecified disorder of psychological development; E11.9 Type 2 diabetes mellitus without complications; Z88.8 Allergy status to other drugs, medicaments and biological substances; Z90.710 Acquired absence of both cervix and uterus
CPT/HCPCS: 70486